=== PATIENT | female | born 1985 | race African-American/Black ===

== ENCOUNTER 2024-02-24 13:36 | Emergency (ER) | payer BC, SELFPAY ==
--- NOTE | ~2024-02-24 | CT_ITS ---
EXAMINATION: CT abdomen pelvis w con DATE: 02/24/2024 17:32 INDICATION: Low abdominal pain. TECHNIQUE: Computed tomography (CT) of the abdomen and pelvis was performed with 100 mL Omnipaque 350 intravenous contrast. Automated exposure control and iterative reconstruction technique were employe d. The dose-length product was 1330.32 mGy-cm. COMPARISON: None. FINDINGS: The visualized portions of the lung bases demonstrate mild atelectasis. No pleural effusion . The heart size is normal. No pericardial effusion. The liver, gallbladder, spleen, pancreas, adrena l glands, and kidneys are normal. There is an intrauterine device in abnormally low position with pen etration of the myometrium. There are no dilated bowel. The appendix is normal. The bladder is marked ly distended. There is an umbilical hernia containing fat. There is mild thoracic and lumbar spondylo sis. IMPRESSION: 1. Intrauterine device in abnormally low position with penetration of the myometrium. 2. Markedly distended bladder. Reviewed, dictated and finalized at location E. IMPRESSION: 1. Intrauterine device in abnormally low position with penetration of the myome trium. 2. Markedly distended bladder.
[2024-02-24 13:40] VITALS: BP 180/109; PULSE 70; RESP 18; TEMP 36.3; O2SAT 100
--- NOTE | 2024-02-24 14:46 | ED.FEMALEGU ---
HPI - Female Genitourinary General Chief complaint: Urogenital-Female Stated complaint: Pelvic Pain, Nausea Time Seen by Provider: 02/24/24 14:41 Source: patient Mode of arrival: ambulatory Limitations: no limitations History of Present Illness HPI Narrative: Virgil is a 38-year-old female patient presenting to the ER today with complaints bilateral pelvic pain and nausea. She reports symptoms started 4 days ago and has gradually gotten worse. States that feels like cramping. States she has been having vaginal bleeding since November after having a new IUD placed. Denies any fever, chills, body aches, shortness breath, or chest pain. No concern for sexually transmitted infection. Denies any abnormal vaginal discharge. Rates the pain currently a 7/10 and is pretty constant. Denies any urinary symptoms. Related Data Allergies Allergy/AdvReac Type Severity Reaction Status Date / Time No Known Allergies Allergy Verified 02/24/24 13:42 Review of Systems Review of Systems: Pertinent positives per HPI. Patient denies any fever, chills, rash, visual changes, dizziness, cough, runny nose, sore throat, shortness of breath, chest pain, palpitations, vomiting, diarrhea, constipation, abdominal pain, or any urinary issues. PMFSH Comments At the time of my signature, I reviewed and agree with the nursing past medical, surgical, social, and family history. There is no relevant family history pertinent to the patient complaint. Exam Narrative: General: Well-developed, well nourished, in no apparent distress. Head: Normocephalic, atraumatic. Cardio: Regular rate and rhythm, s1 and s2 normal, no murmur appreciated. Resp: Clear to auscultation bilaterally, no rhonchi, rales, wheezing or rubs. Abdomen: Soft, pliable, bowel sounds present in all quadrants, tender to palpation over the right lower and left pelvis- right greater than left, no organomegly, no CVAT tenderness. Course Course Emergency Course: Portions of this record may have been created with voice recognition software. Vital Signs Vital signs: Vital Signs Temperature 36.3 C L 02/24/24 13:40 Pulse Rate 70 02/24/24 13:40 Respiratory Rate 18 02/24/24 13:40 Blood Pressure 180/109 H 02/24/24 13:40 Pulse Oximetry 100 02/24/24 13:40 Oxygen Delivery Room Air 02/24/24 13:40 Temperature 36.6 C 02/24/24 17:47 Pulse Rate 80 02/24/24 17:47 Respiratory Rate 16 02/24/24 17:47 Blood Pressure 128/76 02/24/24 17:47 Pulse Oximetry 100 02/24/24 17:47 Oxygen Delivery Room Air 02/24/24 13:40 Vital signs reviewed MDM - Female Genitourinary MDM Narrative Medical decision making narrative: At the time of visit patient is resting comfortably on the exam table. Patient appears to be nontoxic. Labs: CBC shows white blood cell count 7.9 in H&H 11.6 and 36.9, platelet counts 304, anti coagulation studies within normal limits, chemistries within normal limits, urinalysis shows 2+ blood but otherwise normal. Gonorrhea, chlamydia, and trich test pending. Diagnostics: CT abdomen and pelvis shows a abnormal positioning of the IUD-low lying and sticking into the myometrium Plan: Discussed patient's case with Dr. Aparicio-from [facility]- [facility]. He does not feel as though the IUD would be causing the right and left adnexa discomfort however there is no sign on CT that patient has ovarian cyst. Will have patient follow-up with OBGYN Dr. Spence-she is to call the office on Monday to schedule appoint to discuss further treatment. Will send in prescription for naproxen and Zofran for nausea. Supportive measures were discussed with the patient and they voiced understanding discharge instructions and agrees to treatment plan. Return precautions reviewed Differential Diagnosis Differential diagnosis: Likely urinary tract infection, bacterial vaginosis, trichomoniasis, cervicitis, ovarian cyst, vaginitis, ruptured ovarian cyst, cyst of Bartho
[2024-02-24 15:11] LABS: Basophils Percent Auto 0.4 % (0.2-1.2); Eosinophils Absolute Auto 0.1 K/mm3 (0-0.3); Eosinophils Percent Auto 0.9 % (0-4.4); Hematocrit 36.9 % (37.0-47.0); Hemoglobin 11.6 g/dL (12.0-15.0); Immature Granulocyte Absolute 0.02 K/mm3 (0.00-0.031); Immature Granulocyte Percent A 0.3 % (0-0.5); Lymphocytes Absolute Auto 2.16 K/mm3 (0.9-3.2); Lymphocytes Percent Auto 27.3 % (18.3-44.2); Mean Corpuscular HGB Conc 31.4 g/dl (32-36); Mean Corpuscular Hemoglobin 25.5 pg (26-34); Mean Corpuscular Volume 81.1 fl (80-100); Mean Platelet Volume 8.9 fl (7.4-10.4); Monocytes Absolute Auto 0.4 K/mm3 (0.1-0.6); Monocytes Percent Auto 4.9 % (2.6-8.5); Neutrophils Absolute Auto 5.2 K/mm3 (1.3-6.7); Neutrophils Percent Auto 66.2 % (45.5-73.1); Platelet Count Result 304 k/mm3 (150-375); Red Blood Count 4.55 M/mm3 (4.2-5.4); White Blood Count 7.9 K/mm3 (4.5-10.0)
[2024-02-24 15:14] LABS: Appearance Urine Clear (Clear); Bacteria Urine None Seen /hpf; Bilirubin Urine Negative (Negative); Blood Urine 2+ (Negative); Color Urine Yellow (Yellow); Glucose Urine UA Negative (Negative); Ketones Urine Negative (Negative); Leukocyte Esterase Ur Negative LEU/UL (Negative); Nitrate Urine Negative (Negative); Non Pathogenic Casts 0-2; Protein Urine Negative (Negative); RBC Urine 0-2 /hpf (0-2); Specific Grav Ur 1.011 (1.001-1.035); Squamous Epithelial Cell Urine Occasional /hpf (Few); Urobilinogen Urine 0.2 mg/dL (<2.0); WBC Urine 0-5 /hpf (0-3); pH Urine 6.5 (5.0-9.0)
[2024-02-24 15:21] LABS: Alanine Aminotransferase 21 U/L (6-35); Alkaline Phosphatase 51 U/L (38-126); Anion Gap 9 mmol/L (4-12); Aspartate Amino Transferase 23 U/L (14-36); Bilirubin,Total 0.4 mg/dL (0.2-1.3); Blood Urea Nitrogen 10 mg/dL (7-17); Calcium 9.8 mg/dL (8.4-10.2); Carbon Dioxide 28 mmol/L (22-30); Chloride 103 mmol/L (98-107); Estimated CRCL calculation 100 ml/min; Estimated Glomerular Filt Rate > 60; Glucose 96 mg/dL (65-110); Potassium 3.5 mmol/L (3.4-5.0); Sodium 140 mmol/L (137-145)
[2024-02-24] MEDS: SODIUM CHLORIDE 0.9% IV 1,000 ML 150 ML IV CONT (15:24)
[2024-02-24] MEDS: MORPHINE SULFATE (*CRX) 2 MG/ML INJ IV PUSH (15:24)
[2024-02-24] MEDS: ONDANSETRON INJ 4 MG/2 ML VIAL IV PUSH (15:24)
[2024-02-24 15:25] LABS: Prothrombin Time 13.9 Seconds (11.1-14.7)
[2024-02-24 15:26] LABS: Partial Thromboplastin Time 28.7 Seconds (22.3-36.8)
[2024-02-24 15:27] LABS: Add Urine Microscopic? YES
[2024-02-24 15:31] VITALS: BP 142/92; PULSE 88; RESP 16; TEMP 36.6; O2SAT 100
[2024-02-24 16:45] VITALS: BP 134/80; PULSE 80; RESP 16; TEMP 36.6; O2SAT 100
[2024-02-24] MEDS: ACETAMINOPHEN 500 MG TABLET 1000 MG PO (17:05)
[2024-02-24 17:47] VITALS: BP 128/76; PULSE 80; RESP 16; TEMP 36.6; O2SAT 100
[2024-02-24 19:32] LABS: Trichomonas Vag PCR NOT DETECTED (NOT DETECTE)
[2024-02-24 19:55] LABS: Chlamydia trachomatis NOT DETECTED (NOT DETECTE); Neisseria gonorrhoeae PCR NOT DETECTED (NOT DETECTE)
== END 2024-02-24 18:37 | disposition home or self-care (01) ==
PROVIDERS: Emergency Provider Nurse Practitioner Family
DX: R10.2 Pelvic and perineal pain (principal); N93.8 Other specified abnormal uterine and vaginal bleeding; Z97.5 Presence of (intrauterine) contraceptive device
CPT/HCPCS: 36415; 74177; 80053; 81001; 85025; 85610; 85730; 87491; 87591; 87661; 96361; 96374; 96375; 99284; A9270; J2270; J2405; J7030; Q9967